=== PATIENT | male | born 1995 | race Hispanic/Latino ===

== ENCOUNTER 2022-02-18 22:03 | Emergency (ER) | payer OTHER ==
[~2022-02-18] VITALS: Ht 177.8 cm; Wt 74.8 kg
[2022-02-18] MEDS ORDERED: IBUPROFEN 600 MG TAB PO STA (22:24)
[2022-02-18] MEDS ORDERED: IBUPROFEN 600 MG TAB ONE (22:46)
[2022-02-18] MEDS ORDERED: IBUPROFEN600 MG PO (23:02)
[2022-02-18 23:22] VITALS: BP 149/71
== END 2022-02-18 23:22 | disposition home or self-care (01) ==
LOC: FSED 22:23
DX: S62.326A Displaced fracture of shaft of fifth metacarpal bone, right hand, initial encounter for closed fracture (principal); S62.324A Displaced fracture of shaft of fourth metacarpal bone, right hand, initial encounter for closed fracture; W17.89XA Other fall from one level to another, initial encounter; Y93.89 Activity, other specified; Y92.89 Other specified places as the place of occurrence of the external cause; F17.210 Nicotine dependence, cigarettes, uncomplicated
CPT/HCPCS: 99284